=== PATIENT | female | born 1995 | race American Indian/Alaskan Native ===

== ENCOUNTER 2020-08-30 20:52 | Inpatient (IN) | payer OTHER ==
[~2020-08-30] VITALS: Ht 157.5 cm; Wt 68.0 kg
[~2020-08-30 20:52] MED LIST: IBUPROFEN800 MG PO; NORCO 5-325 TA1 EACH PO; PRENATAL 19 TA1 EAC1
--- NOTE | 2020-08-31 01:02 | NUR ---
PT WAS SWABBED FOR COVID 19 FULL PPE DONNED SAMPLE SENT TO LAB
--- NOTE | 2020-08-31 09:14 | PR ---
[facility] [address], [place] [address] Signed Progress Notes IP Datetime Report Generated by CPN: 08/31/2020 09:14 PROGRESS NOTES: [id number] Impression: Normal Progression of Labor; Reassuring Heart Rate Procedures: Sterile Vag Exam Plan: Augmentation Informed Consent Obtain: Vaginal Delivery Other Informed Consents: Pitocin augmentation VITAL SIGNS: [id number] Vital Signs: Reviewed; Within Normal Limits EXAM: [id number] Dilatation: 7.0 Effacement: 70 Station: -2 Contractions: q 2 minutes MEMBRANES: [id number] ROM Note: Comments: Pt seen and examined. Doing well. Comfortable w/ epidural. Contractions somewhat spaced and high station noted. Recommended augmentation w/ low dose pitocin and pt agrees. Will start per protocol FETUS A: [id number] FHR Baseline: 130 Variability: Moderate 6-25bpm Accelerations: 15X15 Decelerations: None FHR Category: Category I Comments on Fetus A: No evidence of metabolic acidosis FETUS B: [id number] Signing Physician: Alan Paniagua DO Copies: ~ *Electronically Signed* 08/31/20 09 ALAN PANIAGUA DO PATIENT NAME: YOSELYN MEYER PROGRESS NOTE DATE OF : [birth year] PHYSICIAN: ALAN PANIAGUA DO RPT #: [id number] REPORT IS CONFIDENTIAL AND NOT TO BE RELEASED WITHOUT AUTHORIZATION
--- NOTE | 2020-09-01 10:28 | PR ---
[facility] [address] [facility] [place], [place] [address] Signed PP Progress Notes Datetime Report Generated by CPN: 09/01/2020 10:28 SUBJECTIVE: [id number] Pain: Within Normal Limits Nausea/Vomiting: Denies Flatus: Yes Bowel Movement: No Vital Signs: [id number] Vital Signs: Reviewed; Within Normal Limits EXAM: Ongoing Cardiovascular: Normal Respiratory: Normal Abdomen/Uterus: Normal Lochia: Normal Vulva/Perineum: Not Done Breasts: Not Done CVA Tenderness: Normal Extremities: Normal Incision: Not Applicable Progress: Normal Exam Comments: Fundus firm U-2 nontender IMPRESSION/PLAN/PROCEDURES: [id number] Impression: Normal Progression Plan: Continue Present Management Procedures: None Progress Notes: Pt seen and examined. Doing well. Ambulating, voiding, and tolerating full diet. Pain and lochia minimal. well. No concerns. to be discharged home tomorrow due to GBS carrier. Anticipate maternal d/c home tomorrow as well. Signing Physician: Alan Paniagua DO Copies: ~ *Electronically Signed* 09/01/20 1028 ALAN PANIAGUA DO PATIENT NAME: YOSELYN MEYER PROGRESS NOTE DATE OF : [birth year] PHYSICIAN: ALAN PANIAGUA DO RPT #: [id number] REPORT IS CONFIDENTIAL AND NOT TO BE RELEASED WITHOUT AUTHORIZATION
--- NOTE | 2020-09-02 09:22 | PR ---
[facility] [place] [facility] [address] [facility] [place], [place] [address] Signed PP Progress Notes Datetime Report Generated by CPN: 09/02/2020 09:22 SUBJECTIVE: [id number] Pain: Within Normal Limits Nausea/Vomiting: Denies Flatus: Yes Bowel Movement: Yes Vital Signs: [id number] Vital Signs: Reviewed; Within Normal Limits EXAM: Met Cardiovascular: Normal Respiratory: Normal Abdomen/Uterus: Normal Lochia: Normal Vulva/Perineum: Not Done Breasts: Not Done CVA Tenderness: Normal Extremities: Normal Incision: Not Applicable Progress: Normal Exam Comments: Fundus firm U-2 nontender IMPRESSION/PLAN/PROCEDURES: [id number] Impression: Normal Progression Plan: Discharge Procedures: None Progress Notes: Pt seen and examined. Doing well. Ambulating, voiding, and tolerating full diet. Pain and lochia minimal. well. No concerns. Desires d/c home today. Reviewed d/c instructions in detail. Desires depoprovera for pp contraception. Signing Physician: Alan Paniagua DO Copies: ~ *Electronically Signed* 09/02/20921 ALAN PANIAGUA DO PATIENT NAME: YOSELYN MEYER PROGRESS NOTE DATE OF : [birth year] PHYSICIAN: ALAN PANIAGUA DO RPT #: [id number] REPORT IS CONFIDENTIAL AND NOT TO BE RELEASED WITHOUT AUTHORIZATION
== END 2020-09-02 10:05 | disposition home or self-care (01) | DRG 807 ==
LOC: FBCO 20:52 → FBC 08-31 00:47
PROVIDERS: ADMIT Obstetrics & Gynecology; ATTEND Obstetrics & Gynecology
PROC: 10E0XZZ Delivery of Products of Conception, External Approach (ICD-10-PCS; principal; 2020-08-31)
PROC: 0KQM0ZZ Repair Perineum Muscle, Open Approach (ICD-10-PCS; 2020-08-31)
PROC: 0UQMXZZ Repair Vulva, External Approach (ICD-10-PCS; 2020-08-31)
PROC: 10907ZC Drainage of Amniotic Fluid, Therapeutic from Products of Conception, Via Natural or Artificial Opening (ICD-10-PCS; 2020-08-31)
PROC: 00HU33Z Insertion of Infusion Device into Spinal Canal, Percutaneous Approach (ICD-10-PCS; 2020-08-31)
PROC: 3E0R3BZ Introduction of Anesthetic Agent into Spinal Canal, Percutaneous Approach (ICD-10-PCS; 2020-08-31)
DX: O99.824 Streptococcus B carrier state complicating childbirth (principal); Z37.0 Single live birth; Z3A.37 37 weeks gestation of pregnancy; O70.1 Second degree perineal laceration during delivery; O71.82 Other specified trauma to perineum and vulva; O76 Abnormality in fetal heart rate and rhythm complicating labor and delivery; O69.1XX0 Labor and delivery complicated by cord around neck, with compression, not applicable or unspecified; O99.324 Drug use complicating childbirth; F12.90 Cannabis use, unspecified, uncomplicated; Z87.891 Personal history of nicotine dependence; Z88.1 Allergy status to other antibiotic agents
CPT/HCPCS: 01960; 36415; 85027; A9270; C9803; J2405; J2540; J2550; J2590; J2795; J3010; J7121; U0003

== ENCOUNTER 2024-06-18 10:12 | Emergency (ER) | payer OTHER ==
[~2024-06-18] VITALS: Ht 152.4 cm; Wt 73.0 kg
[2024-06-18 13:00] VITALS: BP 122/86
== END 2024-06-18 13:00 | disposition home or self-care (01) ==
LOC: ED 10:12
DX: S93.401A Sprain of unspecified ligament of right ankle, initial encounter (principal); Z87.891 Personal history of nicotine dependence; Z88.1 Allergy status to other antibiotic agents; X50.1XXA Overexertion from prolonged static or awkward postures, initial encounter
CPT/HCPCS: 73610; 99283

== ENCOUNTER 2024-09-18 08:44 | Emergency (ER) | payer OTHER ==
[~2024-09-18] VITALS: Ht 152.4 cm; Wt 70.8 kg
[2024-09-18] MEDS ORDERED: ondansetron HCL 4 MG/2 ML VIAL IV ONE ×2 (09:00→14:00)
[2024-09-18] MEDS ORDERED: SODIUM CHLORIDE 0.9% 1,000 ML IV ONE (09:00)
[2024-09-18] MEDS ORDERED: fentaNYL citrate 100 MCG/2 ML VIAL IV ONE (09:00)
[2024-09-18 09:02] LABS: BILIRUBIN, URINE POSITIVE (negative); BLOOD/HGB, URINE LARGE (Negative); KETONE, URINE TRACE (Negative); LEUK ESTERASE, URINE MODERATE (negative); NITRITE, URINE NEGATIVE (negative)
[2024-09-18 09:12] LABS: WHITE BLOOD CELLS, URINE >50 /HPF (0-5)
[2024-09-18 09:14] LABS: BACTERIA, URINE 1+ /hpf (negative); CASTS, URINE NONE SEEN \\lpf; COLLECTION TYPE, URINE CLEAN CATCH; CRYSTALS, URINE NONE SEEN (0-1+); EPITHELIAL CELLS, URINE SQUAMOUS 3+ /lpf (0-1+); REFLEX CULTURE, URINE No (No)
[2024-09-18 09:16] LABS: BASOPHILS 0.4 % (0-2); EOSINOPHILS 0.1 % (0-6); HEMATOCRIT 41.4 % (35.0-50.0); HEMOGLOBIN 14.4 g/dL (12.0-18.0); LYMPHOCYTES 2.1 % (24-44); MCH 30.1 (27-36); MCHC 34.9 g/dl (30-36); MCV 86.2 fl (81-99); MONOCYTES 5.3 % (0-12); NEUTROPHILS 92.1 % (39-80); PLATELET COUNT 259 K/uL (140-440); RDW 12.3 (10.5-15.0)
[2024-09-18 09:31] LABS: ALBUMIN 3.8 g/dL (3.4-5.0); ALBUMIN/GLOBULIN RATIO 0.86 (1.1-2.4); BILIRUBIN, TOTAL 0.7 ng/dL (0.2-1.0); BUN/CREATININE RATIO 6.06 (6.0-28.6); CALCIUM 9.3 mg/dL (8.5-10.1); CREATININE, SERUM 0.99 mg/dL (0.55-1.02); PROTEIN, TOTAL 8.2 g/dL (6.4-8.2)
[2024-09-18 09:34] LABS: LACTIC ACID, BLOOD 0.8 mmol/L (0.4-2.0)
[2024-09-18] MEDS ORDERED: ACETAMINOPHEN 325 MG TAB PO ONE (10:00)
[2024-09-18] MEDS ORDERED: POTASSIUM CHLORIDE 20 MEQ/15 ML CUP PO ONE (10:00)
[2024-09-18 10:11] LABS: BILIRUBIN, URINE NEGATIVE (negative); BLOOD/HGB, URINE LARGE (Negative); KETONE, URINE SMALL (Negative); LEUK ESTERASE, URINE MODERATE (negative); NITRITE, URINE NEGATIVE (negative)
[2024-09-18 10:18] LABS: EPITHELIAL CELLS, URINE SQUAMOUS 3+ /lpf (0-1+)
[2024-09-18 10:19] LABS: BACTERIA, URINE 1+ /hpf (negative); CASTS, URINE NONE SEEN \\lpf; COLLECTION TYPE, URINE CLEAN CATCH; CRYSTALS, URINE NONE SEEN (0-1+); RED BLOOD CELLS, URINE 21-40 /hpf (0-5); REFLEX CULTURE, URINE No (No); WHITE BLOOD CELLS, URINE >50 /HPF (0-5)
[2024-09-18] MEDS ORDERED: SODIUM CHLORIDE 0.9% 1,000 ML IV PRN (11:00)
[2024-09-18] MEDS ORDERED: MAGNESIUM SULFATE 2 GM/50 ML BAG IV ONE (11:00)
[2024-09-18] MEDS ORDERED: fentaNYL citrate 100 MCG/2 ML VIAL IV PRN (11:00)
[2024-09-18] MEDS ORDERED: CEFTRIAXONE/SODIUM CHLORIDE 1 GM/100 ML PIGGYBACK IV ONE (12:00)
[2024-09-18 12:31] LABS: BILIRUBIN, URINE NEGATIVE (negative); BLOOD/HGB, URINE SMALL (Negative); KETONE, URINE SMALL (Negative); LEUK ESTERASE, URINE NEGATIVE (negative); NITRITE, URINE NEGATIVE (negative)
[2024-09-18 12:40] LABS: BACTERIA, URINE RARE /hpf (negative); CASTS, URINE NONE SEEN \\lpf; COLLECTION TYPE, URINE CLEAN CATCH; CRYSTALS, URINE NONE SEEN (0-1+); EPITHELIAL CELLS, URINE SQUAMOUS 3+ /lpf (0-1+); REFLEX CULTURE, URINE No (No); WHITE BLOOD CELLS, URINE 21-40 /HPF (0-5)
[2024-09-18] MEDS ORDERED: CEFPODOXIME PR200 MG PO (13:42)
[2024-09-18] MEDS ORDERED: ONDANSETRON ODT8 MG PO (13:43)
[2024-09-18] MEDS ORDERED: HYDROCODON-ACE1 EA10 PO (13:43)
[2024-09-18] MEDS ORDERED: droPERidol 5 MG/2 ML VIAL IV ONE (14:30)
[2024-09-18] MEDS ORDERED: diphenhydrAMINE HCL 50 MG/ML VIAL IV ONE (14:45)
[2024-09-18 15:45] VITALS: BP 109/72
== END 2024-09-18 15:45 | disposition home or self-care (01) ==
LOC: ED 08:44
PROVIDERS: Emergency Medicine
DX: N12 Tubulo-interstitial nephritis, not specified as acute or chronic (principal); E87.6 Hypokalemia; Z87.891 Personal history of nicotine dependence; Z88.1 Allergy status to other antibiotic agents
CPT/HCPCS: 36415; 51701; 74177; 80053; 81001; 83605; 83735; 84703; 85025; 87040; 99284-25; A9270; J0696; J1200; J1790; J2405; J3010; J3475; J7030; Q9967

== ENCOUNTER 2024-12-22 10:41 | Emergency (ER) | payer OTHER ==
[~2024-12-22] VITALS: Ht 152.4 cm; Wt 70.8 kg
[~2024-12-22 10:41] MED LIST changes: +CEFPODOXIME PR200 MG PO; +HYDROCODON-ACE1 EA10 PO; +ONDANSETRON ODT8 MG PO
[2024-12-22] MEDS ORDERED: ondansetron HCL 4 MG/2 ML VIAL IV ONE (11:15)
[2024-12-22] MEDS ORDERED: ONDANSETRON 4 MG TAB ODT SL ONE (11:15)
[2024-12-22] MEDS ORDERED: droPERidol 5 MG/2 ML VIAL IV ONE (12:15)
[2024-12-22] MEDS ORDERED: ONDANSETRON ODT4 MG PO (13:21)
[2024-12-22 13:25] VITALS: BP 119/82
== END 2024-12-22 13:26 | disposition home or self-care (01) ==
LOC: ED 10:41
DX: R11.10 Vomiting, unspecified (principal); Z87.891 Personal history of nicotine dependence; Z88.1 Allergy status to other antibiotic agents
CPT/HCPCS: 96374; 96375; 99283-25; J1790; J2405